=== PATIENT | male | born 1935 | race Caucasian/White ===

== ENCOUNTER 2018-06-22 10:54 | Day surgery (SDC) | payer MEDICARE ==
[~2018-06-22 10:54] MED LIST: MIDAZOLAM INJ 2 MG/2 ML VIAL (J2250) As Ordered; PHENYLEPHRINE HCL 10 % OPHTH. SOL 5ML OD
[2018-06-22] MEDS: PHENYLEPHRINE 2.5% OPHTH SOL 2ML OD (12:00)
[2018-06-22] MEDS: LIDOCAINE 3.5 % 1ML OPHTH TOPICAL GEL OU (12:00)
[2018-06-22] MEDS: OFLOXACIN 0.3 % (OCUFLOX) OPTH SOL 5ML OD (12:00)
[2018-06-22] MEDS: TROPICAMIDE 1% OPHTH SOLN 2ML OD (12:00)
[2018-06-22] MEDS: CYCLOPENTOLATE 2% OPHTH SOLN 2ML BTL OD (12:00)
[2018-06-22 12:05] LABS: BEDSIDE GLUCOSE 132 MG/DL (83-110)
[2018-06-22] MEDS: MOXIFLOXACIN IN BSS 0.25MG/0.25ML INTRACAMERAL INJ (OR EYE ONLY)(J2280) As Ordered ×2 (13:21→13:25)
[2018-06-22] MEDS: POVIDONE-IODINE 5% OPHTH PREP SOL 30ML As Ordered (13:25)
[2018-06-22] MEDS: LIDOCAINE 1% SDV 5 ML VIAL As Ordered (13:25)
[2018-06-22] MEDS: TRIAMCINOLONE PRES FR 40 MG/ML 1ML(TRIESENCE)(OR EYE ONLY)(J3300 PER 1MG) As Ordered (13:25)
[2018-06-22] MEDS: BSS with VANC/TOB/EPI for EYE CASES IR (13:25)
[2018-06-22] MEDS: HEALON DUET (HEALON 10MG/ML 0.55ML & HEALON ENDOCOAT 30MG/ML 0.85ML) As Ordered (13:25)
== END 2018-06-22 14:17 | disposition home or self-care (01) ==
LOC: M SDC 10:54
DX: H26.9 Unspecified cataract (principal); I48.91 Unspecified atrial fibrillation; I10 Essential (primary) hypertension; E11.9 Type 2 diabetes mellitus without complications
CPT/HCPCS: 66984

== ENCOUNTER 2018-06-29 10:09 | Day surgery (SDC) | payer MEDICARE ==
[~2018-06-29 10:09] MED LIST changes: +ACETAMINOPHEN 325 MG TAB PO; -MIDAZOLAM INJ 2 MG/2 ML VIAL (J2250) As Ordered; -PHENYLEPHRINE HCL 10 % OPHTH. SOL 5ML OD; +PHENYLEPHRINE HCL 10 % OPHTH. SOL 5ML OS
[2018-06-29] MEDS: LIDOCAINE 3.5 % 1ML OPHTH TOPICAL GEL OU (10:30)
[2018-06-29] MEDS: OFLOXACIN 0.3 % (OCUFLOX) OPTH SOL 5ML OS (10:45)
[2018-06-29] MEDS: TROPICAMIDE 1% OPHTH SOLN 2ML OS (10:46)
[2018-06-29] MEDS: CYCLOPENTOLATE 2% OPHTH SOLN 2ML BTL OS (10:47)
[2018-06-29] MEDS: PHENYLEPHRINE 2.5% OPHTH SOL 2ML OS (10:48)
[2018-06-29 10:59] LABS: BEDSIDE GLUCOSE 123 MG/DL (83-110)
[2018-06-29 11:05] LABS: POTASSIUM SERUM 4.4 MEQ/L (3.5-5.1)
[2018-06-29] MEDS: TRIAMCINOLONE PRES FR 40 MG/ML 1ML(TRIESENCE)(OR EYE ONLY)(J3300 PER 1MG) As Ordered (11:12)
[2018-06-29] MEDS: HEALON DUET (HEALON 10MG/ML 0.55ML & HEALON ENDOCOAT 30MG/ML 0.85ML) As Ordered (11:12)
[2018-06-29] MEDS: BSS with VANC/TOB/EPI for EYE CASES IR (11:12)
[2018-06-29] MEDS: POVIDONE-IODINE 5% OPHTH PREP SOL 30ML As Ordered (11:12)
[2018-06-29] MEDS: LIDOCAINE 1% SDV 5 ML VIAL As Ordered (11:12)
[2018-06-29] MEDS: MOXIFLOXACIN IN BSS 0.25MG/0.25ML INTRACAMERAL INJ (OR EYE ONLY)(J2280) As Ordered (11:12)
[2018-06-29] MEDS ORDERED: MIDAZOLAM INJ 2 MG/2 ML VIAL (J2250) As Ordered (11:15)
[2018-06-29] MEDS ORDERED: fentaNYL 100 MCG/2 ML INJECTION (J3010) As Ordered (11:15)
[2018-06-29] MEDS: AcetaZOLAMIDE 500 MG ER CAP PO (11:50)
[2018-06-29] MEDS ORDERED: TRIMETHOBENZAMIDE 300 MG CAP PO (12:00)
== END 2018-06-29 12:35 | disposition home or self-care (01) ==
LOC: M SDC 10:09
DX: H26.9 Unspecified cataract (principal); H57.03 Miosis; H21.562 Pupillary abnormality, left eye; I48.91 Unspecified atrial fibrillation; Z98.61 Coronary angioplasty status; I25.2 Old myocardial infarction; E11.9 Type 2 diabetes mellitus without complications; I10 Essential (primary) hypertension; J44.9 Chronic obstructive pulmonary disease, unspecified; Z87.891 Personal history of nicotine dependence; Z79.899 Other long term (current) drug therapy
CPT/HCPCS: 66982